=== PATIENT | male | born 1975 | race Caucasian/White ===

== ENCOUNTER → 2017-12-21 | Outpatient (REF) | payer MEDICARE, MEDICAID ==
[2017-12-21 11:29] LABS: HEMATOCRIT 47.2 % (42.0-52.0); HEMOGLOBIN 16.2 g/dl (14.0-18.0); MEAN CORPUSCULAR HEMOGLOBIN 30.5 pg (27.0-33.0); MEAN CORPUSCULAR HGB CONC 34.3 g/dl (32.0-36.5); MEAN CORPUSCULAR VOLUME 88.7 fl (80.0-96.0); PLATELET COUNT, AUTOMATED 290 10^3/uL (150-450); RED BLOOD COUNT 5.32 10^6/uL (4.30-6.10); RED CELL DISTRIBUTION WIDTH 11.8 % (11.5-14.5)
[2017-12-21 12:09] LABS: ALBUMIN 4.1 GM/DL (3.2-5.2); ALBUMIN/GLOBULIN RATIO 1.28 (1.00-1.93); ALKALINE PHOSPHATASE 177 U/L (45-117); ALT/SGPT 23 U/L (12-78); ANION GAP 4 MEQ/L (8-16); AST/SGOT 16 U/L (7-37); BILIRUBIN,TOTAL 0.3 MG/DL (0.2-1.0); BLOOD UREA NITROGEN 9 MG/DL (7-18); CALCIUM LEVEL 9.2 MG/DL (8.5-10.1); CARBON DIOXIDE LEVEL 32 MEQ/L (21-32); CHLORIDE LEVEL 106 MEQ/L (98-107); CREATININE FOR GFR 0.78 MG/DL (0.70-1.30); GLOMERULAR FILTRATION RATE > 60.0 (>60); GLUCOSE, FASTING 91 MG/DL (70-100); PHENYTOIN (DILANTIN) 5.4 UG/ML (10.0-20.0); POTASSIUM SERUM 4.9 MEQ/L (3.5-5.1); SODIUM LEVEL 142 MEQ/L (136-145); TOTAL PROTEIN 7.3 GM/DL (6.4-8.2)
== END ==
LOC: M SFHCCLAY 09:05
DX: G40.909 Epilepsy, unspecified, not intractable, without status epilepticus (principal); Z51.81 Encounter for therapeutic drug level monitoring
CPT/HCPCS: 80185

== ENCOUNTER → 2018-06-27 | Outpatient (REF) | payer MEDICARE, MEDICAID ==
[2018-06-27 12:20] LABS: PHENYTOIN (DILANTIN) 4.9 UG/ML (10.0-20.0)
== END ==
LOC: M SFHCCLAY 08:49
DX: G40.909 Epilepsy, unspecified, not intractable, without status epilepticus (principal); Z51.81 Encounter for therapeutic drug level monitoring; Z79.899 Other long term (current) drug therapy
CPT/HCPCS: 80185

== ENCOUNTER → 2018-12-26 | Outpatient (REF) | payer MEDICARE, MEDICAID ==
[2018-12-26 17:52] LABS: HEMATOCRIT 47.3 % (42.0-52.0); MEAN CORPUSCULAR HGB CONC 33.8 g/dl (32.0-36.5); MEAN CORPUSCULAR VOLUME 88.6 fl (80.0-96.0); PLATELET COUNT, AUTOMATED 333 10^3/uL (150-450); RED BLOOD COUNT 5.34 10^6/uL (4.30-6.10); WHITE BLOOD COUNT 7.8 10^3/uL (4.0-10.0)
[2018-12-26 18:22] LABS: ALT/SGPT 30 U/L (12-78); BILIRUBIN,TOTAL 0.4 MG/DL (0.2-1.0); BLOOD UREA NITROGEN 10 MG/DL (7-18); CALCIUM LEVEL 9.2 MG/DL (8.5-10.1); CARBON DIOXIDE LEVEL 32 MEQ/L (21-32); CHLORIDE LEVEL 101 MEQ/L (98-107); CHOLESTEROL LEVEL 166 MG/DL (<200); CHOLESTEROL RISK RATIO 3.387 (<5); CREATININE FOR GFR 0.88 MG/DL (0.70-1.30); GLOMERULAR FILTRATION RATE > 60.0 (>60); GLUCOSE, FASTING 89 MG/DL (70-100); HDL CHOLESTEROL 49 MG/DL (>40); LDL CHOLESTEROL 81 MG/DL (<100); NON-HDL-C 117 MG/DL; POTASSIUM SERUM 5.1 MEQ/L (3.5-5.1); SODIUM LEVEL 139 MEQ/L (136-145); TOTAL PROTEIN 7.5 GM/DL (6.4-8.2); TRIGLYCERIDES LEVEL 178 MG/DL (<150)
== END ==
LOC: M SFHCCLAY 13:30
PROVIDERS: ATTEND Family Medicine
DX: Z00.01 Encounter for general adult medical examination with abnormal findings (principal); G40.909 Epilepsy, unspecified, not intractable, without status epilepticus; Z51.81 Encounter for therapeutic drug level monitoring; R25.1 Tremor, unspecified

== ENCOUNTER 2019-06-02 12:22 | Observation (INO) | payer MEDICARE, MEDICAID ==
[~2019-06-02] VITALS: Ht 190.5 cm; Wt 117.3 kg
[2019-06-02 14:57] VITALS: BP 113/74
[2019-06-02] MEDS ORDERED: fentaNYL 100 MCG/2 ML INJECTION (J3010) IV PRN (15:30)
--- NOTE | 2019-06-02 15:36 | HPEPDOC ---
[facility] Medical History & Physical Date of Admission Jun 02, 2019 (time of service 300PM) Date of Service: Jun 02, 2019 Attending Physician: MOE MOTLEY MD History and Physical CHIEF COMPLAINT: Back pain HISTORY OF PRESENT ILLNESS: This is a 44-year-old male who was transferred from [facility]. Per discussion with the ED attending. The patient was brought in by family members because she is complaining of right flank pain, abdominal pain and vomiting. On their initial assessment, the patient's blood pressure is 132/75, heart rate was 82, temperature is 98.2. WBC count was 15.6, creatinine was 1.2, and GFR was 66. The rest of blood work was unremarkable. CT of the abdomen showed obstructive uropathy with this stone at the UV junction. The ED attending, was unable to move the size of the stone, but will send CD along with the patient. The rest of the history was obtained from the patient's family because he has a patent developmental disability and does not talk very much. According to the patient's family, they noticed he not been acting like his usual self. When asked him if anything was bothering him. He pointed to his right flank area. Currently the patient denies having any pain. His family attributes this to him receiving "pain meds" in the ED. According to his RN he had been given fentanyl. The patient has a poor appetite. His last meal was last night. PAST MEDICAL/SURGICAL HISTORY: 1. Seizure disorder. 2. Developmental disability. SOCIAL HISTORY: Does not smoke. Does not drink. Works part-time. This with his father FAMILY HISTORY: Father: Bladder cancer Mother:, Seizure disorder ALLERGIES: Please see below. REVIEW OF SYSTEMS: All point review of systems negative except as listed in HPI HOME MEDICATIONS: Please see below. PHYSICAL EXAMINATION: VITAL SIGNS: Temperature is 98.1, pulse 93, respiratory rate 16, blood pressure 113/74, pulse oximetry 97% room air GENERAL APPEARANCE: Well-nourished, well-developed, appears slightly flushed HEENT:. Normocephalic, atraumatic. Mucous membrane is moist and pink. CARDIOVASCULAR: Rate and rhythm. No murmurs, rubs or gallops. LUNGS:. Clear to auscultation bilaterally on room air. ABDOMEN:. Positive bowel sounds, soft and nontender on palpation. MUSCULOSKELETAL:. No CVA tenderness, range of motion intact 4 extremities. NEUROLOGICAL: CN II to 12 grossly intact, speech, not dysarthric. PSYCHIATRIC:. Alert and oriented, able to understand and follow commands, is able to talk, but gives limited amount information. LABORATORY DATA: See below. IMAGING: See HPI above MICROBIOLOGY: Please see below. ASSESSMENT:. Mr. Allan is a 44-year-old male with past medical history of developmental disability and seizures will be admitted for management of obstructive uropathy. PLAN: 1. Obstructive uropathy. CT findings, WBC count, and creatinine per HPI. Despite having leukocytosis, the patient does not meet SIRS criteria because his vitals are within normal limits. Plan: We will admit the patient to to general medical floor, keep him nothing by mouth, follow-up CBC and CMP, consult urology , and start IV fluids and levofloxacin. 2. Seizure disorder. Plan: Resume medications tomorrow after the procedure. DVT prophylaxis with SCDs pending procedure. Disposition pending clinical course Allergies Coded Allergies: MS - Penicillins (Unverified Allergy, Unknown, UNKOWN, 02/04/13) MS - Penicillins Cross Reactors (Unverified Allergy, Unknown, UNKOWN, 02/04/13) A-FIB/CHADSVASC A-FIB History Current/History of A-Fib/PAF?: No Current PO Anticoag Therapy: No MOE MOTLEY MD Jun 02, 2019 15:36
[2019-06-02 15:42] LABS: BASO % 0.2 % (0.0-1.0); EOS % 0.1 % (0.0-3.0); HEMATOCRIT 44.4 % (42.0-52.0); HEMOGLOBIN 15.3 g/dl (13.5-17.5); LYMPH % 8.1 % (24.0-44.0); MEAN CORPUSCULAR HEMOGLOBIN 29.9 pg (27.0-33.0); MEAN CORPUSCULAR HGB CONC 34.5 g/dl (32.0-36.5); MEAN CORPUSCULAR VOLUME 86.7 fl (80.0-96.0); MONO # 0.6 10^3/uL (0.0-0.8); MONO % 4.9 % (0.0-5.0); NEUTROPHILS # 10.5 10^3/uL (1.8-7.7); NEUTROPHILS % 86.5 % (36.0-66.0); PLATELET COUNT, AUTOMATED 299 10^3/uL (150-450); RED BLOOD COUNT 5.12 10^6/uL (4.30-6.10); WHITE BLOOD COUNT 12.2 10^3/uL (4.0-10.0)
[2019-06-02] MEDS ORDERED: ZONI50CA3 PO (16:03)
[2019-06-02] MEDS ORDERED: FOLI1TAB11 PO (16:03)
[2019-06-02 16:06] LABS: ALBUMIN 3.8 GM/DL (3.2-5.2); ALT/SGPT 32 U/L (12-78); BILIRUBIN,TOTAL 0.5 MG/DL (0.2-1.0); BLOOD UREA NITROGEN 11 MG/DL (7-18); CALCIUM LEVEL 9.4 MG/DL (8.5-10.1); CARBON DIOXIDE LEVEL 25 MEQ/L (21-32); CHLORIDE LEVEL 110 MEQ/L (98-107); CREATININE FOR GFR 1.01 MG/DL (0.70-1.30); GLOMERULAR FILTRATION RATE > 60.0 (>60); GLUCOSE, FASTING 106 MG/DL (70-100); POTASSIUM SERUM 4.1 MEQ/L (3.5-5.1); SODIUM LEVEL 143 MEQ/L (136-145); TOTAL PROTEIN 7.1 GM/DL (6.4-8.2)
[2019-06-02 16:09] LABS: INR 1.2; PARTIAL THROMBOPLASTIN TIME 29.7 SECONDS (25.0-38.4); PROTHROMBIN TIME 14.9 SECONDS (11.8-14.0)
[2019-06-02] MEDS ORDERED: MORPHINE 4 MG/ML 1ML VIAL/SYRINGE (J2270) IV PRN (16:15)
[2019-06-02] MEDS: NS 1,000 ML IV SCH ×2 (16:26→22:43)
[2019-06-02] MEDS ORDERED: ACETAMINOPHEN *IV* 1,000 MG in APPROPRIATE DILUENT 1 EA IV PRN (16:30)
[2019-06-02] MEDS ORDERED: NORCO, ANEXSIA 5/325MG TABLET (HYDROcodone/ACETAMINOPHEN) PO PRN (17:00)
[2019-06-02 18:11] VITALS: BP 118/78
[2019-06-02 20:42] LABS: APPEARANCE, URINE CLEAR (CLEAR); BACTERIA, URINE AUTO NEGATIVE (NEGATIVE); BILIRUBIN, URINE AUTO NEGATIVE (NEGATIVE); BLOOD, URINE BLOOD 2+ (NEGATIVE); COLOR, URINE STRAW (YELLOW); GLUCOSE, URINE (UA) AUTO NEGATIVE (NEGATIVE); KETONE, URINE AUTO NEGATIVE (NEGATIVE); LEUKOCYTE ESTERASE, URINE AUTO NEGATIVE (NEGATIVE); NITRITE, URINE AUTO NEGATIVE (NEGATIVE); PROTEIN, URINE AUTO NEGATIVE (NEGATIVE); RBC, URINE AUTO 3 /HPF (0-3); SPECIFIC GRAVITY URINE AUTO 1.006 (1.002-1.035); SQUAMOUS EPITHELIAL CELL UR AU 0 /HPF (0-6); UROBILINOGEN, URINE AUTO 0.2 mg/dL (0.0-2.0); WBC, URINE AUTO 2 /HPF (0-3)
[2019-06-02 22:00] VITALS: BP 111/71
[2019-06-03 02:00] VITALS: BP 109/65
[2019-06-03] MEDS: NS 1,000 ML IV SCH (04:53)
[2019-06-03 06:00] VITALS: BP 127/79
[2019-06-03] MEDS ORDERED: LevoFLOXacin IV 750 MG in APPROPRIATE DILUENT 1 EA IV SCH (06:00)
[2019-06-03 06:28] LABS: HEMATOCRIT 41.6 % (42.0-52.0); HEMOGLOBIN 14.2 g/dl (13.5-17.5); MEAN CORPUSCULAR HEMOGLOBIN 30.5 pg (27.0-33.0); MEAN CORPUSCULAR HGB CONC 34.1 g/dl (32.0-36.5); MEAN CORPUSCULAR VOLUME 89.5 fl (80.0-96.0); PLATELET COUNT, AUTOMATED 245 10^3/uL (150-450); RED BLOOD COUNT 4.65 10^6/uL (4.30-6.10); WHITE BLOOD COUNT 7.2 10^3/uL (4.0-10.0)
[2019-06-03 06:59] LABS: BLOOD UREA NITROGEN 11 MG/DL (7-18); CALCIUM LEVEL 8.6 MG/DL (8.5-10.1); CARBON DIOXIDE LEVEL 24 MEQ/L (21-32); CHLORIDE LEVEL 112 MEQ/L (98-107); CREATININE FOR GFR 0.93 MG/DL (0.70-1.30); GLOMERULAR FILTRATION RATE > 60.0 (>60); GLUCOSE, FASTING 104 MG/DL (70-100); POTASSIUM SERUM 3.5 MEQ/L (3.5-5.1); SODIUM LEVEL 142 MEQ/L (136-145)
[2019-06-03] MEDS ORDERED: FLOM0.4C39 PO (08:43)
[2019-06-03] MEDS ORDERED: LEVO500T3 PO (08:43)
[2019-06-03] MEDS ORDERED: TAMSULOSIN 0.4 MG CAP PO SCH (09:00)
--- NOTE | 2019-06-03 10:26 | IPNPDOC ---
Text Note Date of Service The patient was seen on 06/03/19. NOTE The patient denies any further pain, fever, or chills. Physical examination: He has no CVA tenderness and his abdomen is soft and nontender there is no calf tenderness or swelling. Impression: -Most likely passed a small stone Plan: -Continue antibiotics until final cultures come back -Recommend repeating an ultrasound in several weeks to make sure there is no further hydro-ureteronephrosis VS,Fishbone, I+O VS, Fishbone, I+O Laboratory Tests 06/02/19 15:29 Red Blood Count 5.12, Mean Corpuscular Volume 86.7, Mean Corpuscular Hemoglobin 29.9, Mean Corpuscular Hemoglobin Concent 34.5, Red Cell Distribution Width 12.6, Neutrophils (%) (Auto) 86.5 H, Lymphocytes (%) (Auto) 8.1 L, Monocytes (%) (Auto) 4.9, Eosinophils (%) (Auto) 0.1, Basophils (%) (Auto) 0.2, Neutrophils # (Auto) 10.5 H, Lymphocytes # (Auto) 1.0 L, Monocytes # (Auto) 0.6, Eosinophils # (Auto) 0.0, Basophils # (Auto) 0.0, Calcium Level 9.4, Aspartate Amino Transf (AST/SGOT) 23, Alanine Aminotransferase (ALT/SGPT) 32, Alkaline Phosphatase 166 H, Total Bilirubin 0.5, Total Protein 7.1, Albumin 3.8 06/03/19 06:08 Red Blood Count 4.65, Mean Corpuscular Volume 89.5, Mean Corpuscular Hemoglobin 30.5, Mean Corpuscular Hemoglobin Concent 34.1, Red Cell Distribution Width 12.7, Calcium Level 8.6 Vital Signs Date Time Temp Pulse Resp B/P (MAP) Pulse Ox O2 Delivery O2 Flow Rate FiO2 06/03/19 06:00 97.5 83 16 127/79 (95) 94 I&O- Last 24 Hours up to 6 AM 06/03/19 06:00 Intake Total 2440 ml Output Total 840 ml Balance 1600 ml GENOVEVA AMATO MD Jun 03, 2019 10:26
--- NOTE | 2019-06-03 21:49 | DSES ---
DATE OF ADMISSION: 06/02/2019 DATE OF DISCHARGE: 06/03/2019 REASON FOR ADMISSION: Mr. Allan was transferred from [facility] yesterday with a story of having right-sided obstructive nephropathy related to a kidney stone located at the junction between the ureter and the bladder. This was demonstrated on CT scan. After arrival, he was seen in consultation by Dr. Barreto, and it seemed at that point that there was no stone. His pain, which had been treated at [facility] with injectable narcotics, had completely resolved. This morning he remains without symptoms. No right lower quadrant pain. No nausea. EXAMINATION: He is alert, somewhat jittery. He has a background tremor, intellectual impairment and a seizure disorder. He is at his baseline. He denies abdominal discomfort or nausea this morning and no flank pain. Examination shows no costovertebral angle (CVA) tenderness. No abdominal tenderness on exam. Other than the tremor, he has no acute findings. ASSESSMENT: Right hydronephrosis related to stone disease. The patient has been unable to comply with request to sieve his urine to capture stone. At this point, we will discharge him home. PLAN: Outpatient ultrasound to confirm resolution of the hydronephrosis at the time of follow-up visit in approximately 2 weeks. Maintain adequate hydration and resume usual preadmission medications, which include zonisamide 150 mg nightly and folic acid 1 mg nightly. Activity and diet as tolerated. Encourage water intake. DISCHARGE DIAGNOSES: Right hydronephrosis secondary to ureteral stone, which has now passed. Microhematuria. Seizure disorder. Essential tremor. Intellectual impairment, congenital.
== END 2019-06-03 11:35 | disposition home or self-care (01) ==
LOC: PREINTOOBSV 12:36 → M MS5PR 14:15
PROVIDERS: ADMIT Internal Medicine; ATTEND Family Medicine
DX: N13.1 Hydronephrosis with ureteral stricture, not elsewhere classified (principal); R31.29 Other microscopic hematuria; D72.829 Elevated white blood cell count, unspecified; G40.909 Epilepsy, unspecified, not intractable, without status epilepticus; G25.0 Essential tremor; F79 Unspecified intellectual disabilities; Z88.0 Allergy status to penicillin; Z79.899 Other long term (current) drug therapy
CPT/HCPCS: 36415; 80048; 80053; 81001; 83605; 85025; 85027; 85610; 85730; 87040; 96365; J1956

== ENCOUNTER → 2019-08-22 | Outpatient (REF) | payer MEDICARE, MEDICAID ==
[~2019-08-22] MED LIST: FLOM0.4C39 PO; FOLI1TAB11 PO; LEVO500T3 PO; ZONI50CA3 PO
[2019-08-22 16:29] LABS: BASO # 0.1 10^3/uL (0.0-0.2); BASO % 0.9 % (0.0-1.0); EOS # 0.4 10^3/uL (0.0-0.5); EOS % 7.6 % (0.0-3.0); HEMATOCRIT 47.9 % (42.0-52.0); HEMOGLOBIN 16.1 g/dl (13.5-17.5); LYMPH # 1.5 10^3/uL (1.5-5.0); LYMPH % 25.6 % (24.0-44.0); MEAN CORPUSCULAR HEMOGLOBIN 30.6 pg (27.0-33.0); MEAN CORPUSCULAR HGB CONC 33.6 g/dl (32.0-36.5); MEAN CORPUSCULAR VOLUME 90.9 fl (80.0-96.0); MONO # 0.5 10^3/uL (0.0-0.8); MONO % 9.3 % (0.0-5.0); NEUTROPHILS # 3.3 10^3/uL (1.5-8.5); NEUTROPHILS % 56.3 % (36.0-66.0); PLATELET COUNT, AUTOMATED 293 10^3/uL (150-450); RED BLOOD COUNT 5.27 10^6/uL (4.30-6.10); WHITE BLOOD COUNT 5.8 10^3/uL (4.0-10.0)
[2019-08-22 17:10] LABS: ERYTHROCYTE SEDIMENTATION RATE 6 mm/hr (0-15)
== END ==
LOC: M SFHCCLAY 10:58
PROVIDERS: ATTEND Family Medicine
DX: D69.2 Other nonthrombocytopenic purpura (principal); G40.909 Epilepsy, unspecified, not intractable, without status epilepticus; Z23 Encounter for immunization
CPT/HCPCS: 80183; 85025; 85652; 90682; G0008; G0463

== ENCOUNTER → 2019-10-14 | Outpatient (CLI) | payer MEDICARE, MEDICAID ==
--- NOTE | 2019-10-14 17:23 | ECHO ---
DATE OF PROCEDURE: 10/14/2019 REFERRING PHYSICIAN: Dr. Owen Evans INDICATION: Pulmonary edema. HEIGHT: 185 cm WEIGHT: 125 kg 2D MEASUREMENTS: Ventricular septum: 0.96 cm Posterior wall: 1.06 cm Left ventricle diastole: 5.7 cm Aortic root: 3.3 cm Left atrium: 3.8 cm Left atrial volume index: 13 Inferior vena cava: 1.3 cm DOPPLER MEASUREMENTS: Aortic valve velocity: 143 cm/s LVOT velocity: 117 cm/s Mitral E velocity: 82.6 cm/s Mitral A velocity: 65.6 cm/s Mitral deceleration time: 256 milliseconds No aortic stenosis. No aortic regurgitation. No mitral stenosis. No mitral regurgitation. No tricuspid regurgitation. No pulmonic regurgitation. Pulmonary acceleration time: 148 milliseconds MITRAL ANNULAR TISSUE DOPPLER: E prime lateral: 9.7 cm/s E prime septal: 10.8 cm/s DESCRIPTION: Rhythm was sinus. This was a moderately technically difficult echocardiogram. No pericardial effusion. CONCLUSIONS: 1. Left ventricle normal in size when taking the patient's body size into account. Normal left ventricular (LV) wall thickness. Normal regional LV wall motion and wall thickening. Normal LV systolic function. Left ventricular ejection fraction (LVEF) 67% (3D). Normal LV diastolic function. 2. Normal right ventricle size and systolic function. Pulmonary artery systolic pressure not elevated. Normal inferior vena cava size suggestive of central venous pressure not being elevated at the time of the study. 3. Otherwise normal appearing echocardiogram Doppler.
== END ==
LOC: M CARPUL 08:06
PROVIDERS: ATTEND Family Medicine
DX: R60.0 Localized edema (principal)

== ENCOUNTER → 2020-06-11 | Outpatient (CLI) | payer MEDICARE, MEDICAID ==
[~2020-06-11] MED LIST changes: +ZONI50CA11 PO; -ZONI50CA3 PO
--- NOTE | 2020-07-17 15:24 | SLEEPCENT ---
DATE: 06/11/2020 ORDERED BY: Easton Angulo MD Nocturnal polysomnography was performed for evaluation of sleep physiology in this patient with a history of excessive somnolent snoring and nonrestorative sleep. There was 9 hours and 15 minutes of data reviewed. There was 344.5 minutes of sleep identified. Sleep latency was prolonged at 58 minutes. REM latency was prolonged at 262.5 minutes. Sleep architecture showed poor progression early on. There were two REM cycles noted. Overall sleep efficiency was 62.7%. The electrocardiogram showed a sinus rhythm with an average heart rate of 57 beats per minute. EEG showed reasonably normal waveforms for wake and sleep. There were 41 respiratory events identified of 10 seconds in duration or greater for an apnea-hypopnea index of 7.1. The events were primarily obstructive. They were not exclusive to sleep stage and more frequent in the supine posture. Arousals from respiratory events occurred 5.9 times per hour and oxygen desaturations were seen below 90%. There was some activity in the limb leads, but limb movement arousal index was within normal limits. IMPRESSION: Mild obstructive sleep apnea syndrome (G47.33), apnea-hypopnea index 7.1. RECOMMENDATIONS: Sleep position retraining for avoidance of the supine posture may be sufficient to address the patients problem. If symptoms persist, referral back to [facility] for pressure therapy should be considered. In the interim, alcohol and sedative avoidance should be practiced and caution exercised during the operation of motor vehicles. MTDD
== END ==
LOC: M SLEEP 20:00
PROVIDERS: ATTEND Physician Assistant
DX: R06.83 Snoring (principal)

== ENCOUNTER → 2020-07-23 | Outpatient (CLI) | payer MEDICARE, MEDICAID ==
--- NOTE | 2020-07-31 07:36 | SLEEPCENT ---
DATE: 07/23/2020 ORDERED BY: ANANDA Leavitt Nocturnal polysomnography was performed for the titration of pressure therapy in this patient with obstructive sleep apnea syndrome. Apnea hypopnea index of 7.1. For testing, a ResMed F20 AirTouch full face mask of large size was used. 4 cm of water pressure were applied to the circuit and the lights were extinguished. Seven hours and 43 minutes of data were reviewed. There were 322.5 minutes of sleep identified. Sleep latency was normal as 12.5 minutes. REM sleep was delayed at 169 minutes. Sleep architecture showed fragmentation with brief awakenings. There were two REM cycles noted. Overall sleep efficiency was 71%. The electrocardiogram showed small complexes with a sinus rhythm and an average heart rate of 60 beats per minute. EEG showed normal waveforms for awake and sleep, no focal events were seen. Respiratory events were fully palliated with CPAP at a pressure of +7 and remaining measures of sleep physiology were normal. IMPRESSIONS: Obstructive sleep apnea syndrome (G47.33). RECOMMENDATION: Nightly use of pressure therapy 7 cm of water. MTDD
== END ==
LOC: M SLEEP 20:00
PROVIDERS: ATTEND Physician Assistant
DX: G47.33 Obstructive sleep apnea (adult) (pediatric) (principal)

== ENCOUNTER → 2021-10-27 | Outpatient (REF) | payer MEDICARE, MEDICAID ==
[2021-10-28 12:01] LABS: HEMATOCRIT 49.1 % (42.0-52.0); HEMOGLOBIN 16.6 g/dl (13.5-17.5); MEAN CORPUSCULAR HEMOGLOBIN 30.1 pg (27.0-33.0); MEAN CORPUSCULAR HGB CONC 33.8 g/dl (32.0-36.5); MEAN CORPUSCULAR VOLUME 89.1 fl (80.0-96.0); PLATELET COUNT, AUTOMATED 307 10^3/uL (150-450); RED BLOOD COUNT 5.51 10^6/uL (4.30-6.10); WHITE BLOOD COUNT 9.3 10^3/uL (4.0-10.0)
[2021-10-28 12:41] LABS: ALBUMIN 4.1 GM/DL (3.2-5.2); ALT/SGPT 26 U/L (12-78); BILIRUBIN,TOTAL 0.2 MG/DL (0.2-1.0); BLOOD UREA NITROGEN 13 MG/DL (7-18); CALCIUM LEVEL 9.6 MG/DL (8.5-10.1); CARBON DIOXIDE LEVEL 30 MEQ/L (21-32); CHLORIDE LEVEL 106 MEQ/L (98-107); CHOLESTEROL LEVEL 184 MG/DL (<200); CHOLESTEROL RISK RATIO 3.118 (<5); CREATININE FOR GFR 0.74 MG/DL (0.70-1.30); GLOMERULAR FILTRATION RATE > 60.0 (>60); GLUCOSE, FASTING 91 MG/DL (70-100); HDL CHOLESTEROL 59 MG/DL (>40); LDL CHOLESTEROL 95 MG/DL (<100); NON-HDL-C 125 MG/DL; PHENYTOIN (DILANTIN) 14.8 UG/ML (10.0-20.0); POTASSIUM SERUM 5.2 MEQ/L (3.5-5.1); SODIUM LEVEL 140 MEQ/L (136-145); TOTAL PROTEIN 7.9 GM/DL (6.4-8.2); TRIGLYCERIDES LEVEL 148 MG/DL (<150)
== END ==
LOC: M SFHCCLAY 14:35
PROVIDERS: ATTEND Family Medicine
DX: G40.909 Epilepsy, unspecified, not intractable, without status epilepticus (principal); Z51.81 Encounter for therapeutic drug level monitoring; R25.1 Tremor, unspecified

== ENCOUNTER → 2023-05-31 | Outpatient (REF) | payer MEDICARE, MEDICAID ==
[~2023-05-31] MED LIST changes: +LEVO1TAB39 PO; -LEVO500T3 PO
[2023-05-31 17:54] LABS: MEAN CORPUSCULAR HEMOGLOBIN 29.5 pg (27.0-33.0); MEAN CORPUSCULAR HGB CONC 33.3 g/dl (32.0-36.5); MEAN CORPUSCULAR VOLUME 88.6 fl (80.0-96.0); PLATELET COUNT, AUTOMATED 293 10^3/uL (150-450); RED BLOOD COUNT 5.42 10^6/uL (4.30-6.10); WHITE BLOOD COUNT 7.4 10^3/uL (4.0-10.0)
[2023-05-31 18:14] LABS: ALBUMIN 3.9 G/DL (3.2-5.2); ALKALINE PHOSPHATASE 200 U/L (46-116); ALT/SGPT 22 U/L (7.0-40); AST/SGOT 12 U/L (<34); BILIRUBIN,TOTAL 0.4 MG/DL (0.3-1.2); BLOOD UREA NITROGEN 11 MG/DL (9-23); CALCIUM LEVEL 9.5 MG/DL (8.5-10.1); CARBON DIOXIDE LEVEL 28 MMOL/L (20-31); CHLORIDE LEVEL 103 MMOL/L (98-107); CREATININE FOR GFR 0.65 MG/DL (0.70-1.30); GLOMERULAR FILTRATION RATE > 60.0 (>60); GLUCOSE, FASTING 86 MG/DL (60-100); POTASSIUM SERUM 4.2 MMOL/L (3.5-5.1); SODIUM LEVEL 141 MMOL/L (136-145); TOTAL PROTEIN 7.3 G/DL (5.7-8.2)
[2023-05-31 18:16] LABS: FREE T4 0.89 NG/DL (0.89-1.76); THYROID STIMULATING HORMONE 2.297 uIU/ML (0.55-4.78)
[2023-05-31 18:18] LABS: PHENYTOIN (DILANTIN) 13.5 UG/ML (10.0-20.0)
== END ==
LOC: M SFHCCLAY 13:47
PROVIDERS: ATTEND Family Medicine
DX: G40.909 Epilepsy, unspecified, not intractable, without status epilepticus (principal); Z79.899 Other long term (current) drug therapy

== ENCOUNTER → 2024-08-02 | Outpatient (REF) | payer MEDICARE, MEDICAID ==
[2024-08-02 18:20] LABS: ALBUMIN 3.9 G/DL (3.2-5.2); ALKALINE PHOSPHATASE 208 U/L (46-116); ALT/SGPT 19 U/L (7.0-40); AST/SGOT 13 U/L (<34); BILIRUBIN,TOTAL 0.3 MG/DL (0.3-1.2); BLOOD UREA NITROGEN 10 MG/DL (9-23); CALCIUM LEVEL 9.4 MG/DL (8.5-10.1); CARBON DIOXIDE LEVEL 28 MMOL/L (20-31); CHLORIDE LEVEL 106 MMOL/L (98-107); CHOLESTEROL LEVEL 176 MG/DL (<200); CREATININE FOR GFR 0.73 MG/DL (0.70-1.30); GLOMERULAR FILTRATION RATE > 60.0 (>60); GLUCOSE, FASTING 97 MG/DL (60-100); POTASSIUM SERUM 4.4 MMOL/L (3.5-5.1); SODIUM LEVEL 138 MMOL/L (136-145); TOTAL PROTEIN 7.5 G/DL (5.7-8.2); TRIGLYCERIDES LEVEL 155 MG/DL (<150)
[2024-08-02 18:22] LABS: PHENYTOIN (DILANTIN) 14.8 UG/ML (10.0-20.0)
[2024-08-02 18:28] LABS: BASO # 0.1 10^3/uL (0.0-0.2); BASO % 0.8 % (0.0-1.0); EOS # 0.4 10^3/uL (0.0-0.5); EOS % 6.4 % (0.0-3.0); HEMOGLOBIN 16.4 g/dl (13.5-17.5); LYMPH # 1.6 10^3/uL (1.5-5.0); LYMPH % 24.6 % (24.0-44.0); MEAN CORPUSCULAR HEMOGLOBIN 30.1 pg (27.0-33.0); MEAN CORPUSCULAR HGB CONC 34.2 g/dl (32.0-36.5); MEAN CORPUSCULAR VOLUME 88.2 fl (80.0-96.0); MONO # 0.6 10^3/uL (0.0-0.8); MONO % 9.6 % (2.0-8.0); NEUTROPHILS # 3.8 10^3/uL (1.5-8.5); NEUTROPHILS % 58.3 % (36.0-66.0); PLATELET COUNT, AUTOMATED 318 10^3/uL (150-450); RED BLOOD COUNT 5.44 10^6/uL (4.30-6.10); WHITE BLOOD COUNT 6.6 10^3/uL (4.0-10.0)
[2024-08-02 22:52] LABS: CHOLESTEROL RISK RATIO 3.45 (<5)
== END ==
LOC: M SFHCCLAY 13:35
PROVIDERS: ATTEND Family Medicine
DX: Z00.01 Encounter for general adult medical examination with abnormal findings (principal); G40.909 Epilepsy, unspecified, not intractable, without status epilepticus; D69.2 Other nonthrombocytopenic purpura; R25.1 Tremor, unspecified; Z79.899 Other long term (current) drug therapy

== ENCOUNTER → 2025-07-21 | Outpatient (REF) | payer MEDICARE, MEDICAID ==
[~2025-07-21] MED LIST changes: -FLOM0.4C39 PO; +TAMS-18 PO
[2025-07-21 19:07] LABS: BASO # 0.1 10^3/uL (0.0-0.2); BASO % 0.7 % (0.0-1.0); EOS # 0.1 10^3/uL (0.0-0.5); EOS % 1.9 % (0.0-3.0); LYMPH # 1.4 10^3/uL (1.5-5.0); LYMPH % 19.0 % (24.0-44.0); MONO # 0.5 10^3/uL (0.0-0.8); MONO % 6.3 % (2.0-8.0); NEUTROPHILS # 5.2 10^3/uL (1.5-8.5); NEUTROPHILS % 71.0 % (36.0-66.0); PLATELET COUNT, AUTOMATED 348 10^3/uL (150-450)
[2025-07-21 19:10] LABS: ALT/SGPT 23 U/L (7.0-40); AST/SGOT 19 U/L (<34); CALCIUM LEVEL 9.6 MG/DL (8.5-10.1); CARBON DIOXIDE LEVEL 30 MMOL/L (20-31); CHLORIDE LEVEL 104 MMOL/L (98-107); CHOLESTEROL LEVEL 194 MG/DL (<200); CHOLESTEROL RISK RATIO 2.89 (<5); CREATININE FOR GFR 0.72 MG/DL (0.70-1.30); GLOMERULAR FILTRATION RATE > 90.0 (>56); LDL CHOLESTEROL 109.4 MG/DL (<100); NON-HDL-C 127.0 MG/DL; POTASSIUM SERUM 4.9 MMOL/L (3.5-5.1); SODIUM LEVEL 143 MMOL/L (136-145); TRIGLYCERIDES LEVEL 88 MG/DL (<150)
[2025-07-21 19:39] LABS: ESTIMATED AVERAGE GLUCOSE 108.0 MG/DL (60-110)
== END ==
LOC: M SFHCCLAY 11:00
PROVIDERS: ATTEND Nurse Practitioner Family
DX: R25.1 Tremor, unspecified (principal); G40.909 Epilepsy, unspecified, not intractable, without status epilepticus; I10 Essential (primary) hypertension